=== PATIENT | female | born 1960 | race African-American/Black ===

== ENCOUNTER → 2018-01-21 | Day surgery (SDC) | payer OTHER ==
[~2018-01-21] VITALS: Ht 175.3 cm; Wt 45.1 kg
[~2018-01-21] MED LIST: ACETAMINOPHEN 1000 MG/100 ML 100 ML IV ONE; ACETAMINOPHEN 1000 MG/100 ML 100 ML IV SCH; ACETAMINOPHEN/HYDROcodone 325 MG/5 MG TAB PO PRN; AMLO5TAB2 PO; BUPIVACAINE/EPINEPHRINE 0.25% 50 ML VIAL ONE; CHLORHEXIDINE GLUCONATE 2 % 1 PACK (2 CLOTHS) TOPICAL PRN; DO NOT ADM ANY ANTICOAGULANT DRUGS PRN; DOXY1CAP74 PO; GLYCOPYRROLATE 1 MG/5 ML SYRINGE IV PUSH ONE; LACTATED RINGER'S 1000 ML IV PRN; LIDOCAINE HCL 1% PF 5 ML SYRINGE OTHER ONE; LISI40TA PO; LOTR5CAP3; METOPROLOL TARTRATE 25 MG TAB PO PRN; MIDAZOLAM HCL 2 MG/2 ML VIAL ONE; NEOSTIGMINE 5 MG/5 ML SYRINGE IV PUSH ONE; NORC5TAB PO; ONDANSETRON HCL 4 MG/2 ML VIAL IV ONE; ONDANSETRON HCL 4 MG/2 ML VIAL IV PUSH PRN; PHENYLEPH/NS 1000 MCG/10 ML SYR IV ONE; POVIDONE IODINE 5% (ANTISEPSIS KIT) 4 APPLICATIONS EACH NARE PRN; PROPOFOL 200 MG/20 ML AMP IV ONE; ROCURONIUM INJ 50 MG/5 ML SYRINGE IV PUSH ONE; SODIUM CHLORID 0.9% 500 ML IV PRN; ceFAZolin 2 GM/DEX PREMIX 50 ML IV SCH
[2018-01-21 08:39] LABS: BASOPHIL % 0.8 % (0.0-2.0); EOSINOPHIL # 0.9 TH/MM3 (0-0.4); EOSINOPHIL % 16.9 % (0.0-4.0); HEMATOCRIT 35.6 % (35.0-46.0); HEMOGLOBIN 11.7 GM/DL (11.6-15.3); LYMPHOCYTE # 1.1 TH/MM3 (1.0-4.8); MEAN CELL VOLUME 94.9 FL (80.0-100.0); MEAN CORPUSCULAR HEMOGLOBIN 31.3 PG (27.0-34.0); MEAN CORPUSCULAR HGB CONC 32.9 % (32.0-36.0); MEAN PLATELET VOLUME 10.2 FL (7.0-11.0); MONO % 5.5 % (0.0-8.0); MONOCYTE # 0.3 TH/MM3 (0-0.9); NEUT % 55.8 % (16.0-70.0); PLATELET COUNT 68 TH/MM3 (150-450); RED BLOOD COUNT 3.75 MIL/MM3 (4.00-5.30); RED CELL DISTRIBUTION WIDTH 15.6 % (11.6-17.2); WHITE BLOOD COUNT 5.4 TH/MM3 (4.0-11.0)
[2018-01-21 08:54] LABS: BICARBONATE 26.8 MEQ/L (21.0-32.0); CALCIUM 9.7 MG/DL (8.5-10.1); CREATININE 2.79 MG/DL (0.50-1.00)
[2018-01-21 09:18] LABS: OVALOCYTES 1+ (NORMAL)
--- NOTE | 2018-01-21 11:48 | PD.OP ---
Operative Report Date of Surgery: Jan 21, 2018 Preoperative Diagnosis: Chronic kidney disease, desire for peritoneal dialysis Postoperative Diagnosis: Same Procedure: Laparoscopic assisted peritoneal dialysis catheter placement Anesthesia: General Surgeon: Ramakrishna Leigh Sheetfed Press Operator(s): Kusum Operation and Findings: Indications for procedure This is a pleasant 57-year-old woman patient of Dr. JAIME FORMAN who is interested in peritoneal dialysis. She has a history of polycystic kidney disease. She is presently doing hemodialysis through a right sided PermCath. Intraoperative findings successful placement of 62.5 cm curled dual cuffed swan neck peritoneal dialysis catheter. 1 L of fluid infused in approximate 800 cc of fluid came out. Estimated blood loss less than 2 mL. Description of procedure in detail The patient was identified as an at [facility] taken to the operating room and placed in a supine position. Sequential compression device were placed on bilateral lower extremities. Following induction of adequate general endotracheal anesthesia the patient's abdomen was prepped and draped in usual sterile fashion with Betadine. A timeout procedure was performed. Following completion of the timeout procedure to everyone's satisfaction within the room local anesthetic was infiltrated in the left lateral subcostal position. An approximately 1-1/2-2 cm incision was carried out with a scalpel and dissection continued posteriorly through the subcutaneous fatty tissue to the anterior fascia. This was incised with a scalpel and the underlying muscular layers were spread with a hemostat allowing for identification the posterior fashion peritoneum. This was retracted anteriorly a tiny incision was made with a scalpel and the 5 mm blunt-tipped balloon Rhodes trocar was placed into the peritoneal cavity its balloon inflated and CO2 insufflation to a level of 15 mmHg ensued. A left lateral 5 mm trocar was placed in the peritoneal cavity under direct laparoscopic view after incision and skin with a scalpel. The patient was placed in a slight Trendelenburg position. There was a small pedunculated fibroid of the uterus was identified and avoided. The previously marked exit site was reidentified inferior and left lateral to the umbilicus. Proposed entry site was selected inferior to the umbilicus and slightly left of midline. Local anesthetic was placed in a small transverse incision was made with a scalpel. The 5 mm trocar was then placed through the layers of the abdominal wall into the preperitoneal space then directed inferiorly perforating the peritoneum superior to the apex of the bladder. The curled portion of the peritoneal dialysis catheter was then lubricated and placed through the trocar into the peritoneal cavity under direct laparoscopic view. The trocar was then withdrawn over the 2 cloth coughs and removed. Curled portion of the catheter was then placed into the dependent portion of the pelvis posterior to the patient's uterus. Using the FALL ER dilator/tunneler the catheter swan-neck portion was tunneled to a additional exit incision site created with a scalpel after instillation of local anesthetic and then finally to its marked exit site. Haile dilator was then excised and the titanium caps placed. 1 L of fluid was infused fused through the peritoneal dialysis catheter without difficulty, and 800 cc was withdrawn without difficulty. The plastic tip was placed on the titanium. Confirmation of appropriate location of the peritoneal dialysis catheter within the peritoneum to the M was made. No other intra-abdominal abnormalities were identified. The 5 mm trocar was removed under direct visualization there was no evidence of bleeding from trocar sites and the abdomen was desufflated through the left subcostal port. This port was then removed and the posterior fascia and anterior fascial layers were closed with interrupted 2-0 Vicryl sutures. The skin incisions were approximated with 4-0 Monocryl subcuticular sutures and dressed with Mastisol and half-inch brown Steri-Strips. A biopatch was placed at the peritoneal dialysis catheter exit site. 4 x 4's and large Tegaderms were used to cover the peritoneal dialysis catheter and keep it off of the patient's skin. The patient tolerated the procedure without apparent complication. Sponge needle and instrument counts were correct at the end of the case. End dictation Ramakrishna Leigh MD Jan 21, 2018 11:48
[2018-01-21 14:00] VITALS: BP 149/90; PULSE 50; RESP 18; TEMP 98.6; O2SAT 100
--- NOTE | 2018-01-21 16:34 | EKG ---
Date Performed: 01/21/2018 Time Performed: 08:02:08 PTAGE: 57 years EKG: SINUS BRADYCARDIA VOLTAGE CRITERIA FOR LVH NONSPECIFIC T-WAVE ABNORMALITY When compared to previous tracing, anterior nonspecific changes Are more prominant. Consider ischemia. ABNORMAL ECG PREVIOUS TRACING : 10/14/2006 23.05 DOCTOR: Pawel Brown Interpretating Date/Time 01/21/2018 16:33:10
== END | disposition home or self-care (01) ==
LOC: HSDC 07:38
PROVIDERS: ATTEND Surgery Trauma Surgery
DX: Z45.2 Encounter for adjustment and management of vascular access device (principal); N18.9 Chronic kidney disease, unspecified; I12.9 Hypertensive chronic kidney disease with stage 1 through stage 4 chronic kidney disease, or unspecified chronic kidney disease
CPT/HCPCS: 00840; 49324; 80048; 85025; 93005; C1750; J0131; J0690; J2250; J2370; J2405; J2710; J3010; J7120